=== PATIENT | male | born 1980 | race Hispanic/Latino ===

== ENCOUNTER → 2022-01-26 | Outpatient (CLI) | payer OTHER ==
[~2022-01-26] MED LIST: LIDOCAINE HCL 4% LTA SOL 4 ML VIAL ONE
== END | disposition home or self-care (01) ==
LOC: WHH 13:53
PROVIDERS: ATTEND Family Medicine
DX: T81.31XA Disruption of external operation (surgical) wound, not elsewhere classified, initial encounter (principal); S31.501A Unspecified open wound of unspecified external genital organs, male, initial encounter; E11.628 Type 2 diabetes mellitus with other skin complications; E78.5 Hyperlipidemia, unspecified; J45.909 Unspecified asthma, uncomplicated; F31.9 Bipolar disorder, unspecified; F41.9 Anxiety disorder, unspecified; E66.9 Obesity, unspecified; Z68.38 Body mass index [BMI] 38.0-38.9, adult; Z79.84 Long term (current) use of oral hypoglycemic drugs; Z79.899 Other long term (current) drug therapy; Z87.891 Personal history of nicotine dependence; Y83.8 Other surgical procedures as the cause of abnormal reaction of the patient, or of later complication, without mention of misadventure at the time of the procedure; X58.XXXA Exposure to other specified factors, initial encounter; Y93.89 Activity, other specified; Y92.238 Other place in hospital as the place of occurrence of the external cause; Y99.8 Other external cause status
CPT/HCPCS: G0463; A6209; A4450

== ENCOUNTER → 2022-02-23 | Outpatient (CLI) | payer OTHER | END | disposition home or self-care (01) | LOC: WHH 09:19 | PROVIDERS: ATTEND Family Medicine | DX: T81.89XD Other complications of procedures, not elsewhere classified, subsequent encounter (principal); S31.501D Unspecified open wound of unspecified external genital organs, male, subsequent encounter; E11.628 Type 2 diabetes mellitus with other skin complications; E78.5 Hyperlipidemia, unspecified; J45.909 Unspecified asthma, uncomplicated; F31.9 Bipolar disorder, unspecified; F41.9 Anxiety disorder, unspecified; E66.9 Obesity, unspecified; Z68.38 Body mass index [BMI] 38.0-38.9, adult; Z79.84 Long term (current) use of oral hypoglycemic drugs; Z79.899 Other long term (current) drug therapy; Z87.891 Personal history of nicotine dependence; X58.XXXD Exposure to other specified factors, subsequent encounter; Y83.8 Other surgical procedures as the cause of abnormal reaction of the patient, or of later complication, without mention of misadventure at the time of the procedure | CPT/HCPCS: G0463 ==

== ENCOUNTER → 2023-06-03 | Outpatient (CLI) | payer OTHER | END | disposition home or self-care (01) | LOC: WHH 08:47 | PROVIDERS: ATTEND Nurse Practitioner Family | DX: T81.31XD Disruption of external operation (surgical) wound, not elsewhere classified, subsequent encounter (principal); S31.501D Unspecified open wound of unspecified external genital organs, male, subsequent encounter; E78.5 Hyperlipidemia, unspecified; J45.909 Unspecified asthma, uncomplicated; N49.2 Inflammatory disorders of scrotum; E66.9 Obesity, unspecified; F32.A Depression, unspecified; F41.9 Anxiety disorder, unspecified; Z68.38 Body mass index [BMI] 38.0-38.9, adult; Z87.891 Personal history of nicotine dependence; Z79.84 Long term (current) use of oral hypoglycemic drugs; Z79.899 Other long term (current) drug therapy; Y83.8 Other surgical procedures as the cause of abnormal reaction of the patient, or of later complication, without mention of misadventure at the time of the procedure; X58.XXXD Exposure to other specified factors, subsequent encounter | CPT/HCPCS: 87070; 87077 ×3; 87186 ×3; 82948; G0463; A6248 ==